=== PATIENT | female | born 1985 | race Caucasian/White ===

== ENCOUNTER 2018-05-19 06:00 | Inpatient (IN) ==
[2018-05-24] MEDS ORDERED: Metoclopramide 10 MG/2 ML VIAL IVP PRN (13:18)
[2018-05-24] MEDS ORDERED: Naloxone 0.4 MG/ML INJ IVP PRN (13:18)
[2018-05-24] MEDS ORDERED: Ondansetron 4 MG/2 ML VIAL IVP PRN (13:18)
[2018-05-24] MEDS ORDERED: Penicillin G Potassium 5,000,000 UNIT in 0.9 % Sodium Chloride Mini Bag 100 ML IVPB ONE (13:18)
[2018-05-24] MEDS ORDERED: Famotidine 20 MG/2 ML VIAL IVP PRN (13:18)
[2018-05-24] MEDS ORDERED: *HR* Nalbuphine 10 MG/ML AMPUL IVP PRN (13:18)
[2018-05-24] MEDS ORDERED: Ringers Solution, Lactated 1,000 ML IVC SCH (13:30)
[2018-05-24] MEDS ORDERED: Oxytocin 20 units/ LR 1000 mL 20 UNIT/1,000 ML BAG IVC SCH (13:30)
--- NOTE | 2018-05-24 13:58 | OB/GYN History & Physical ---
Date of Encounter: 05/24/18 Time of Encounter: 13:54 Assessment and Plan (1) Intrauterine Current visit: Yes Status: Acute Induction of Trial of labor after intact amniotic membranes continuous electronic monitoring Labs- CBC, collect to hold Pain management plan is NCB Start pitocin anticipate (2) 40 weeks gestation of Current visit: Yes Status: Acute (3) History of Current visit: Yes Status: Acute (4) Positive GBS test Current visit: Yes Status: Acute Received penicillin prophylaxis History of Present Illness Chief complaint: Trial of Labor after HPI: Ms. Sanchez is a 33 year old female A1 at roughly 40 weeks and 5 days arrives for trial of labor after . The patient states that she began experiencing cramping overnight and has had a small amount of pink mucus since. The patient states she is having cramping consistent with previous contractions in past. The patient noted to be GBS positive. The patient with normal vaginal delivery without complications on first child. Second , the patient noted to be dilating appropriately but was taken to OR for "emergent " secondary to what she thinks as the FHR dropped. The patient states she would like to trial vaginal labor without . Denies any other complaints at this time. Past Med Surg Social Fam HX - Past Medical History Attestation: Yes The following information was validated with the patient. Source: patient Medical history: no medical history Psychiatric history: no psych history Obstetrical History - Pregnancies : 4 Para: 2 Term: 2 : 0 Ab's: 1 Livin Review of System OB All systems PM: reviewed and no additional remarkable complaints except as stated - Constitutional Constitutional ROS IM: no fever(s), no headache(s) - Cardiovascular Cardiovascular: no chest pain - Respiratory Respiratory: no dyspnea - Genitourinary Genitourinary: vaginal discharge, no urinary frequency, no urinary hesitancy, no urinary urgency - Neurological Nerological: no headache(s), no loss of vision Exam - Constitutional Constitutional: well developed, well nourished, no acute distress, average body habitus - HEENT HEENT: PERRL - Neck Neck exam: full ROM - Lungs Respiratory exam: CTAB - Cardiovascular Cardiovascular exam: RRR, +S1, +S2 - Abdomen Abdomen: Present: gravid (gestational age appropriate). Absent: diffuse tenderness - Extremities Extremities exam: full ROM - Vagina Vagina: Present: normal moisture - Uterus Uterus exam: Present: enlarged (gestional age appropriate) Results All other labs normal. - VTE Reasons for not Prescribing Prophylaxis: Treatment not Indicated - Low risk for VTE
[2018-05-24 14:37] LABS: Basophils % 0.3 %; Eosinophils % 0.4 %; Hematocrit 36.6 % (35.3-44.9); Hemoglobin 12.4 g/dL (11.5-15.4); Immature Granulocytes % 0.9 % (0-4); Lymphocytes # 1.8 K/mcL (0.6-4.6); Lymphocytes % 16.5 %; Mean Corpuscular HGB Conc 33.9 g/dL (31.6-35.5); Mean Corpuscular Hemoglobin 30.9 pg (28.0-33.3); Mean Corpuscular Volume 91.3 fL (83.0-100.0); Mean Platelet Volume 11.4 fL (9.4-12.4); Monocytes # 0.5 K/mcL (0.0-1.3); Monocytes % 4.8 %; Neutrophils # 8.6 K/mcL (1.6-8.9); Platelet Count 196 K/mcL (140-400); Red Blood Count 4.01 M/mcL (3.82-4.97); Red Cell Distribution Width 13.2 % (11.5-14.5); Segmented Neutrophils % 77.1 %
[2018-05-24 14:43] LABS: Amphetamine Screen,Urine Negative ng/mL (Cutoff=1000); Barbiturate Screen,Urine Negative ng/mL (Cutoff=200); Benzodiazepines Screen,Urine Negative ng/mL (Cutoff=200); Cannabinoid Screen,Urine Negative ng/mL (Cutoff = 50); Cocaine Screen,Urine Negative ng/mL (Cutoff= 300); Opiate Screen,Urine Negative ng/mL (Cutoff=300); Phencyclidine Screen,Urine Negative ng/mL (Cutoff=25)
[2018-05-24] MEDS ORDERED: Penicillin G Potassium 2,500,000 UNIT in 0.9 % Sodium Chloride 100 ML IVPB SCH (17:30)
[2018-05-24] MEDS ORDERED: Epidural Premix (fent/bupiv) 110 ML EP ONE (18:53)
[2018-05-24] MEDS ORDERED: Lidocaine -MPF 1% 5 ML AMPUL ONE (18:54)
[2018-05-24] MEDS ORDERED: Bupivacaine-MPF 0.25% 10 ML VIAL ONE (18:54)
[2018-05-24] MEDS ORDERED: *HR* FentaNYL (PF) 100 MCG/2 ML VIAL ONE (18:54)
[2018-05-24] MEDS ORDERED: *HR* Ropivacaine/PF 0.2% 20 ML VIAL ONE (18:54)
--- NOTE | 2018-05-24 19:19 | Anesthesia Evaluation PreOp ---
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: Denies Any Significant HX Other Medical History: Denies Any Significant HX Anesthesia History: No Prior Anesthetic Complications, Past Anesthesia : Yes (40 plus 5, ) Alcohol Use: none Drug use: none Medications and Allergies Evening [place] Oil Softgel 1,000 mg PO DAILY 05/24/18 [History] [employer] Vitamins Tablet 1 mg PO DAILY 05/24/18 [History] Allergy/AdvReac Type Severity Reaction Status Date / Time cephalexin Allergy Rash Verified 05/24/18 14:03 - Meds/Allergy Pre-op Review Medications Reviewed: Yes Allergies Reviewed: Yes Beta Blockers on Current Med List: No Anesthesia Results - Labs 05/24/18 13:52 Anesthesia Exam O2 Sat Height 1.63 m Weight 98.6 kg O2 Sat by Pulse Oximetry 99 Vital Signs Temp Pulse Resp BP Pulse Ox 97.6 F 101 18 135/78 99 05/24/18 13:52 05/24/18 13:52 05/24/18 13:52 05/24/18 13:52 05/24/18 13:52 Height: 64 Weight: 98 - HEENT Pupil (Motor): Pupils equal Mallampati: II Teeth: Normal Oral Opening: Greater than 3 - [employer]ICAL [employer]WYER LOC: Oriented [employer] Motor: Normal RUE, Normal LUE, Normal RLE, Normal LLE, Normal Face [employer] Sensory: Normal: RUE, LUE, RLE, LLE, Face - Cardiac Rhythm: Regular Murmur: None JVD: No Carotid Bruit: No - Pulmonary Breath Sounds: bilateral Clear Respiratory Effort: Symmetrical Anesthesia Assess/Plan ASA Score: 2 Level of consciousness: Cooperative Anesthetic Plan: Epidural Monitoring Plan: Standard Monitors
--- NOTE | 2018-05-24 19:21 | Anesthesia Procedures ---
Addendum entered and electronically signed by David Cottrell CRNA 05/24/18 22:53: Infant Delivery Date: 05/24/18 Delivery Time: 21:55 Original Note: Date of Encounter: 05/24/18 Time of Encounter: 19:19 Procedures: Anesthesia - Epidural/Spinal Patient ID/Chart reviewed: Yes Patient examined: Yes OB Eval: Gestational age: 40 OB Eval: : 4 OB Eval: Hx Para: 2 OB Eval: Dilated at (cm): 6 OB Eval: Contractions: Non-stressed pattern Consent Obtained: Yes Supplemental Oxygen: None/Room Air Site Prep: Aseptic Technique Patient position: upright Local Anesthetic: Lidocaine 1% Amount of Local Anesthetic used: 3 Touhy Needle Gauge: 18 Touhy Needle Depth (cm): 5 Catheter Depth at Skin (cm): 12 Test Dose (1.5% Lido + Epi): Volume given (mls): 3 Test Dose Result: Negative Loading Dose: Fentanyl (mcg): 100 Loading Dose: Other: 2ml nss, 5ml 0.2% ropivicaine Loading Dose Administered: Thru Touhy Needle Infusion Med: 0.125% Bupivacaine w/ 2 mcg/ml Fentanyl Infusion Rate (mls/hr): [address]: Tegaderm Interspace Used: L3-L4 Loss of Resistance (ANGI): Yes Blood: No CSF: No Paresthesia: No Procedure: strict asepsis, one attempt at L3-4, good ANGI, neg heme, parasthesias or CSF. FHR unchanged
[2018-05-24] MEDS ORDERED: EPHEDrine 50 MG/ML VIAL ONE (19:26)
[2018-05-24] MEDS ORDERED: Epidural Premix (fent/bupiv) 110 ML EP SCH (19:30)
--- NOTE | 2018-05-24 19:49 | Event Note ---
Date of Encounter: 05/24/18 Time of Encounter: 19:46 Marcela is a 33-year-old female and brought in to labor and delivery for augmentation of labor. In the office as patient was 4-5 cm 80% effaced and -2 station. Patient was brought to labor and delivery for augmentation. Over the course of her labor this patient contractions began to augment. On my arrival patient had just received an epidural. She had a hypotensive episode from the epidural which resulted in a category 2 tracing. Her Pitocin had been turned off prior to the epidural at the patient's request. Tracing is now return to category 1 tracing with blood pressures returning after ephedrine. Once patient was comfortable vaginal exam was performed. She is now 9 cm complete and a -2 station. Clear fluid was noted with artificial rupture membranes. Scalp lead was placed. Pitocin will will be restarted.
--- NOTE | 2018-05-24 21:49 | Event Note ---
Date of Encounter: 05/24/18 Time of Encounter: 21:47 Patient is complete. Patient had a 0 to +1 station. Patient's abdomen very lax. Unable to push or feel anything at this point. We will turn epidural down. Patient refusing section stating she has no family here and wants vaginal . She has delivered a 9 pound baby vaginally. We discussed trying to bring baby down with the vacuum to see if this will help her to the point where she could not push. Currently patient unable to baby and vaginal canal as most of baby is coming overtop of pubis with lax abdomen.
--- NOTE | 2018-05-24 22:20 | OB/GYN Procedure Note ---
Delivery - Delivery Date: 05/24/18 Provider: Glen Friend Intrapartum events: none Delivery induction: none, oxytocin Delivery augmentation: rupture of membranes, pitocin Delivery monitor: external FHT, external uterine, internal FHT Anesthesia: epidural Quantitated Blood Loss: 300 - (s) A Delivery Date: 05/24/18 Delivery Time: 21:55 Presentation: vertex Position: OA Route of delivery: Gender: Male Viability: Viable at 1 minute: 8 at 5 mins: 9 Shoulder Dystocia: not encountered Placenta: spontaneous Cord: 3 umbilical vessels - Repair Episiotomy: none Laceration Description: Perineal - 2nd Degree - Complications Delivery complications: none Delivery comments: Patient had been complete and pushing. Her epidural had been turned down. Patient was able to feel contractions again. Patient was able to push and bring right down. Patient brought in and said down to the perineum easily. 's head was then delivered without difficulty. The rest the infant was then delivered with 1 push. Infant cried immediately upon delivery. Cord was cut to cut. The was then passed to nursing in attendance after 1 minute. Cord blood was obtained. The placenta was delivered spontaneously intact. There are no cervical vaginal periurethral lacerations noted. There was a second-degree perineal laceration which was noted and repaired with 0 Vicryl suture in usual fashion. Patient's previous section scar was palpated and found to be intact. Patient delivered a male infant weight is pending his mother skin the skin Apgars are 8 at 1 minute 9 at 5 minutes estimated blood loss is 300 mL. - Disposition Mom disposition: stable in LDR disposition: stable in LDR
[2018-05-25] MEDS ORDERED: Rho Immune Globulin 1,500 UNIT SYRINGE IM PRN (00:08)
[2018-05-25] MEDS ORDERED: Measles/Mumps/Rubella Vacc 0.5 ML VIAL SQ PRN (00:08)
[2018-05-25] MEDS ORDERED: Oxytocin 20 units/ LR 1000 mL 20 UNIT/1,000 ML BAG IVC SCH (00:08)
[2018-05-25] MEDS ORDERED: Benzocaine/Menthol 56 GM AEROSOL SPRAY TP ONE (00:43)
[2018-05-25] MEDS: Ibuprofen 600 MG TABLET PO PRN ×4 (01:51→21:45)
[2018-05-25 06:56] LABS: Basophils % 0.1 %; Eosinophils % 0.2 %; Hematocrit 33.5 % (35.3-44.9); Hemoglobin 11.3 g/dL (11.5-15.4); Immature Granulocytes % 0.6 % (0-4); Lymphocytes # 1.7 K/mcL (0.6-4.6); Lymphocytes % 13.5 %; Mean Corpuscular HGB Conc 33.7 g/dL (31.6-35.5); Mean Corpuscular Hemoglobin 31.2 pg (28.0-33.3); Mean Corpuscular Volume 92.5 fL (83.0-100.0); Mean Platelet Volume 11.2 fL (9.4-12.4); Monocytes % 7.6 %; Platelet Count 151 K/mcL (140-400); Red Blood Count 3.62 M/mcL (3.82-4.97); Red Cell Distribution Width 13.2 % (11.5-14.5)
[2018-05-25] MEDS: Prenatal Vit/FA 1 EACH TABLET PO SCH (08:40)
--- NOTE | 2018-05-25 08:55 | OB/GYN Progress Note ---
Date of Encounter: 05/25/18 Time of Encounter: 08:53 - Assessment and Plan (1) Status post vaginal delivery Current Visit: Yes Status: Acute Continue with plan of care Likely discharge tomorrow (05/26) AM. (2) History of Current Visit: Yes Status: Chronic (3) Positive GBS test Current Visit: Yes Status: Acute Received penicillin prophylaxis antepartum. Subjective - Subjective Principal diagnosis: Vaginal Delivery Interval history: Patient has been doing well. Pain well-controlled. Minimal vaginal bleeding noted. Patient ambulating without difficulty. Patient urinating and passing gas. Noted to be tolerating PO intake. Patient reports: appetite normal, voiding normally, pain well controlled, ambulating normally : doing well Objective - Latest Vital Signs Latest vital signs: Vital Signs Temp Pulse Resp BP Pulse Ox 05/25/18 07:49 98.2 F 78 14 122/78 96 05/25/18 02:30 98.3 F 81 16 113/68 97 05/25/18 01:30 98.6 F 74 14 119/68 98 05/25/18 00:30 98.4 F 88 18 133/75 98 05/24/18 13:52 97.6 F 101 18 135/78 99 Intake and Output 05/24/18 05/25/18 05/25/18 23:59 07:59 15:59 Output Total 1350 / 1350 Balance -1350 / -1350 Output: Urine 650 / 650 Straight Cath 700 / 700 Other: Weight 98.6 kg 93.1 kg Patient Weight 05/25/18 23:59 Weight 93.1 kg - Exam Lungs: bilateral: normal Chest: Normal S1, Normal S2 Extremities: Present: normal Abdomen: Present: normal appearance, soft Uterus: Present: normal Uterus Position: At Umbilicus - Labs Labs: Laboratory Results - last 24 hr 05/24/18 05/24/18 05/24/18 13:52 13:52 22:09 WBC 11.1 RBC 4.01 Hgb 12.4 Hct 36.6 MCV 91.3 MCH 30.9 MCHC 33.9 RDW 13.2 Plt Count 196 MPV 11.4 Immature Gran % 0.9 Seg Neutrophils % 77.1 Lymphocytes % 16.5 Monocytes % 4.8 Eosinophils % 0.4 Basophils % 0.3 Neutrophils # 8.6 Lymphocytes # 1.8 Monocytes # 0.5 Eosinophils # 0.0 Basophils # 0.0 Urine Opiates Screen Negative Ur Barbiturates Screen Negative Ur Phencyclidine Scrn Negative Ur Amphetamines Screen Negative U Benzodiazepines Scrn Negative Urine Cocaine Screen Negative U Marijuana (THC) Screen Negative Ur Drug Screen Interp See Below Baby's Blood Type O RH NEGATIVE Mother's Blood Type O RH NEGATIVE Rhogam Indicated NO 05/25/18 06:23 WBC 12.9 H RBC 3.62 L Hgb 11.3 L Hct 33.5 L MCV 92.5 MCH 31.2 MCHC 33.7 RDW 13.2 Plt Count 151 MPV 11.2 Immature Gran % 0.6 Seg Neutrophils % 78.0 Lymphocytes % 13.5 Monocytes % 7.6 Eosinophils % 0.2 Basophils % 0.1 Neutrophils # 10.0 H Lymphocytes # 1.7 Monocytes # 1.0 Eosinophils # 0.0 Basophils # 0.0 Urine Opiates Screen Ur Barbiturates Screen Ur Phencyclidine Scrn Ur Amphetamines Screen U Benzodiazepines Scrn Urine Cocaine Screen U Marijuana (THC) Screen Ur Drug Screen Interp Baby's Blood Type Mother's Blood Type Rhogam Indicated
[2018-05-25] MEDS: Acetaminophen 325 MG TABLET PO PRN (18:36)
[2018-05-26] MEDS: Acetaminophen 325 MG TABLET PO PRN (01:04)
[2018-05-26] MEDS: Ibuprofen 600 MG TABLET PO PRN (03:54)
[2018-05-26 08:24] VITALS: BP 104/59
[2018-05-26] MEDS: Prenatal Vit/FA 1 EACH TABLET PO SCH (09:19)
--- NOTE | 2018-05-26 10:59 | Discharge Summary ---
Date of Encounter: 05/26/18 Time of Encounter: 12:24 - Discharge Diagnosis (1) Breast feeding status of mother Priority: Secondary Status: Acute Comments: (2) Status post vaginal delivery Priority: Primary Status: Acute Comments: Pt meeting PPD1 milestones. Reports pain managed by Ibuprofen. Reports is going well. Discussed control options and safe spacing. Declines control today, is considering IUD at visit. Anticipate discharge home today. - Discharge Medications Prescriptions: Ibuprofen [Motrin] 600 mg PO Q6HR PRN #30 tablet PRN Reason: Mild To Moderate Pain Docusate [Colace] 100 mg PO BID #30 capsule Home Medications: [employer] Vitamins Tablet 1 mg PO DAILY 05/24/18 [History] Docusate [Colace] 100 mg PO BID #30 capsule 05/26/18 [Rx] Ibuprofen [Motrin] 600 mg PO Q6HR PRN #30 tablet 05/26/18 [Rx] Allergies/Adverse Reactions: Allergy/AdvReac Type Severity Reaction Status Date / Time cephalexin Allergy Rash Verified 05/24/18 14:03 Data Procedures and tests throughout hospitalization: Laboratory Tests 05/24/18 05/24/18 05/24/18 13:52 13:52 22:09 WBC 11.1 RBC 4.01 Hgb 12.4 Hct 36.6 MCV 91.3 MCH 30.9 MCHC 33.9 RDW 13.2 Plt Count 196 MPV 11.4 Immature Gran % 0.9 Seg Neutrophils % 77.1 Lymphocytes % 16.5 Monocytes % 4.8 Eosinophils % 0.4 Basophils % 0.3 Neutrophils # 8.6 Lymphocytes # 1.8 Monocytes # 0.5 Eosinophils # 0.0 Basophils # 0.0 Urine Opiates Screen Negative Ur Barbiturates Screen Negative Ur Phencyclidine Scrn Negative Ur Amphetamines Screen Negative U Benzodiazepines Scrn Negative Urine Cocaine Screen Negative U Marijuana (THC) Screen Negative Ur Drug Screen Interp See Below Baby's Blood Type O RH NEGATIVE Mother's Blood Type O RH NEGATIVE Rhogam Indicated NO 05/25/18 06:23 WBC 12.9 H RBC 3.62 L Hgb 11.3 L Hct 33.5 L MCV 92.5 MCH 31.2 MCHC 33.7 RDW 13.2 Plt Count 151 MPV 11.2 Immature Gran % 0.6 Seg Neutrophils % 78.0 Lymphocytes % 13.5 Monocytes % 7.6 Eosinophils % 0.2 Basophils % 0.1 Neutrophils # 10.0 H Lymphocytes # 1.7 Monocytes # 1.0 Eosinophils # 0.0 Basophils # 0.0 Urine Opiates Screen Ur Barbiturates Screen Ur Phencyclidine Scrn Ur Amphetamines Screen U Benzodiazepines Scrn Urine Cocaine Screen U Marijuana (THC) Screen Ur Drug Screen Interp Baby's Blood Type Mother's Blood Type Rhogam Indicated Date of admission: 05/24/18 12:27 Primary care physician: PCP NONE Consults: 05/25/18 00:08 Consult to [facility] [CONS] Routine Comment: Vaginal delivery, consult needed Discharging clinician: Lisa Smith Anticipated date of discharge: 05/26/18 - Patient Status Disposition: Home, Self-Care Condition: Good Functional capacity at discharge: independent ambulation Overall status at discharge: patient is progressing back to baseline - Discharge Instructions Follow Up With: NONE,PCP [Primary Care Provider] - Glen Friend MD [Partnered Physician] - - Diet and Activity Activity: increase activity as tolerated Diet: advance to your usual diet Hospital Course Reason for admission: induction of labor, IUP at term Delivery: () Episiotomy: none Laceration: 2nd degree Other procedures: none complications: none Discharge diagnosis: IUP at term delivered [place] baby: male Hospital course: - Delivery Date: 05/24/18 Provider: Glen Friend Intrapartum events: none Delivery induction: none, oxytocin Delivery augmentation: rupture of membranes, pitocin Delivery monitor: external FHT, external uterine, internal FHT Anesthesia: epidural Quantitated Blood Loss: 300 - Infant (s) A Delivery Date: 05/24/18 Delivery Time: 21:55 Presentation: vertex Position: OA Route of delivery: Gender: Male Viability: Viable at 1 minute: 8 at 5 mins: 9 Shoulder Dystocia: not encountered Placenta: spontaneous Cord: 3 umbilical vessels - Repair Episiotomy: none Laceration Description: Perineal - 2nd Degree - Complications Delivery complications: none - Disposition Mom disposition: home PPD 2 disposition: home with mother, Time Attestation: Total time spent providing and/or coordinating discharge services: Exam - Constitutional Vitals: Temp Pulse Resp BP Pulse Ox 97.8 F 59 16 104/59 97 01/26/19 07:30 05/26/18 07:30 05/26/18 07:30 05/26/18 07:30 05/25/18 20:13 General appearance IM: A&O X 3, pleasant, no acute distress - Respiratory Respiratory exam: Present: CTAB - Cardiovascular Cardiovascular exam IM: Present: RRR - GI/Abdominal GI/Abdominal exam IM: normal bowel sounds - Uterine Tone: Firm Uterus Position: 1 Finger Below Umbilicus, Midline - Extremities Exam Extremities exam IM: Present: normal capillary refill, normal inspection. Absent: calf tenderness, tenderness - Neurological Exam Neurological exam: alert, oriented X3, reflexes normal
[2018-05-26] MEDS ORDERED: Benzocaine/Menthol 56 GM AEROSOL SPRAY TP PRN (12:45)
== END 2018-05-26 13:20 | disposition home or self-care (01) | DRG 807 ==
LOC: 1NENULAB 05-24 12:27 → 1NENUOBS 05-25 00:57
PROVIDERS: ADMIT Advanced Practice Midwife; ATTEND Advanced Practice Midwife